=== PATIENT | female | born 1975 | race Caucasian/White ===

== ENCOUNTER 2024-05-13 20:56 | Emergency (ER) | payer BC, SELFPAY ==
[2024-05-13] MEDS ORDERED: Ketorolac Tromethamine 30 MG (1 mL) VIAL ONE (21:24)
[2024-05-13] MEDS ORDERED: Morphine 4 MG/ML VIAL ONE (23:04)
[2024-05-13] MEDS ORDERED: Ondansetron PF 4 MG/2 ML Vial ONE (23:04)
[2024-05-13] MEDS ORDERED: Dexamethasone 4 mg/ml Vial ONE (23:04)
== END 2024-05-13 23:48 | disposition home or self-care (01) ==
LOC: ERS 20:56
DX: M25.551 Pain in right hip (principal); I10 Essential (primary) hypertension; E11.51 Type 2 diabetes mellitus with diabetic peripheral angiopathy without gangrene; Z87.891 Personal history of nicotine dependence; F17.210 Nicotine dependence, cigarettes, uncomplicated
CPT/HCPCS: 72170; 72192; 96374; 96375; J1100; J1885; J2270; J2405